=== PATIENT | male | born 1990 ===

== ENCOUNTER 2024-12-21 06:22 | Day surgery (SDC) | payer BC, SELFPAY ==
[2024-12-21] VITALS (10 sets, daily range): BP systolic 111–127; BP diastolic 80–92; BMI 27.0
[2024-12-21] MEDS: NORMOSOL-R/PLASMALYTE-A 1000 IV (10:10)
[2024-12-21] MEDS: DILAUDID 0.25 MG IV ×2 (12:04→12:27)
[2024-12-21] MEDS: ROXICODONE 5 MG PO (13:23)
== END 2024-12-21 14:08 | disposition home or self-care (01) ==
LOC: SDS 06:22
PROVIDERS: ATTENDING PHYSICIAN Otolaryngology
DX: J33.9 Nasal polyp, unspecified (principal); J34.2 Deviated nasal septum
CPT/HCPCS: 31267; 88300; 88304; 88311